=== PATIENT | male | born 1945 | race Asian ===

== ENCOUNTER 2017-03-03 11:04 | Emergency (ER) | payer MEDICARE, OTHER ==
[~2017-03-03] VITALS: Ht 182.9 cm; Wt 63.5 kg
[~2017-03-03 11:04] MED LIST: CRESTOR20 MG PO; LOSA1TAB16 PO; METF500T9 PO; METO25TA2 PO
[2017-03-03 11:10] VITALS: BP 120/69
[2017-03-03] MEDS ORDERED: NEOMY/BACITR/POLYMYXIN OINT PACKET. TP ONE (11:45)
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
== END 2017-03-03 12:05 | disposition home or self-care (01) ==
LOC: ER 11:04
DX: S81.801A Unspecified open wound, right lower leg, initial encounter (principal); I10 Essential (primary) hypertension; E11.9 Type 2 diabetes mellitus without complications; V89.2XXA Person injured in unspecified motor-vehicle accident, traffic, initial encounter; Y93.89 Activity, other specified; Y92.89 Other specified places as the place of occurrence of the external cause; Y99.8 Other external cause status
CPT/HCPCS: 82962; 87071; 87075; 87205; 99284

== ENCOUNTER 2017-05-04 10:45 | Emergency (ER) | payer MEDICARE, OTHER ==
[2017-05-04 10:54] VITALS: BP 127/70
--- NOTE | 2017-05-04 11:00 | PHYS DOC ---
Past Medical History Past Medical History: Diabetes-Type II, Hypertension Past Surgical History: Other Additional Past Surgical Histo: BILATERAL SHOULDER SX, BILATERAL KNEE SX Alcohol Use: None Drug Use: None Adult General Chief Complaint Chief Complaint: EARACHE/EAR PAIN [facility] HPI Patient is a 71 year old male with history of hypertension and diabetes type 2 who presents today for ear wax removal from bilateral ears. Patient denies any fever coughing or congestion. Review of Systems Review of Systems Constitutional: See history of present illness Eyes: Denies change in visual acuity, redness, or eye pain [] HENT: Earwax removal Respiratory: Denies cough or shortness of breath [] Cardiovascular: No additional information not addressed in HPI [] Musculoskeletal: Denies back pain or joint pain [] Integument: Denies rash or skin lesions [] Neurologic: Denies headache, focal weakness or sensory changes [] Endocrine: Denies polyuria or polydipsia [] Allergies Allergies Allergies Coded Allergies Type Severity Reaction Last Updated Verified No Known Drug Allergies 09/02/14 No Physical Exam Physical Exam Constitutional: Well developed, well nourished, no acute distress, non-toxic appearance. [] HENT: Normocephalic, atraumatic, bilateral external ears normal, oropharynx moist, no oral exudates, nose normal. Bilateral ear canals are impacted with cerumen Eyes: PERRLA, EOMI, conjunctiva normal, no discharge. [] Cardiovascular:Heart rate regular rhythm, no murmur [] Lungs & Thorax: Bilateral breath sounds clear to auscultation [] Skin: Warm, dry, no erythema, no rash. [] Back: No tenderness, no CVA tenderness. [] Extremities: No tenderness, no cyanosis, no clubbing, ROM intact, no edema. [] Neurologic: Alert and oriented X 3, normal motor function, normal sensory function, no focal deficits noted. [] Psychologic: Affect normal, judgement normal, mood normal. [] Current Patient Data Vital Signs Vital Signs Date Time Temp Pulse Resp B/P (MAP) Pulse Ox O2 Delivery O2 Flow Rate FiO2 05/04/17 10:54 97.9 69 18 97 Room Air 97.9 EKG EKG [] Radiology/Procedures Radiology/Procedures [] Course & Med Decision Making Course & Med Decision Making Pertinent Labs and Imaging studies reviewed. (See chart for details) Patient is in the ED for earwax removal from bilateral ears. Left ear was flushed by the RN and moderate amount of wax was removed. Right ear was flushed and small amount of wax was removed. Recommended liquid Colace or debrox for a few days to the left ear canal. F/u with PCP next week. Dragon Disclaimer Dragon Disclaimer This electronic medical record was generated, in whole or in part, using a voice recognition dictation system. Departure Departure Impression: Primary Impression: Impacted cerumen of both ears Disposition: HOME, SELF-CARE Condition: STABLE Referrals: SISI MORTON MD (PCP) follow up with your doctor next week Patient Instructions: Cerumen Impaction Additional Instructions: You had ear wax removed from your ears. The right ear has small amount of ear wax left. You can go to the pharmacy and buy liquid colace ensure you tell the pharmacist it is for earwax removal and they should give it to you in liquid form and use it for remove the wax, or can also use debrox for a few days it will help in earwax removal. SAVANNAH MARTINEZ APRN May 04, 2017 11:00
== END 2017-05-04 11:44 | disposition home or self-care (01) ==
LOC: ER 10:45
DX: H61.23 Impacted cerumen, bilateral (principal); I10 Essential (primary) hypertension; E11.9 Type 2 diabetes mellitus without complications
CPT/HCPCS: 69209; 99282